=== PATIENT | male | born 1965 | race Caucasian/White ===

== ENCOUNTER → 2018-02-22 | Day surgery (SDC) | payer BC, OTHER ==
[2018-02-15 09:03] VITALS: Ht 172.7 cm; Wt 80.9 kg
[~2018-02-22] VITALS: Ht 172.7 cm; Wt 80.9 kg
[~2018-02-22] MED LIST: FENTANYL CITRATE INJ 50 MCG/1 ML 2 ML VIAL ONE; LIDOCAINE HCL 2% 2 ML VIAL (20MG/ML) ONE; PROPOFOL IV EMULSION 10 MG/ML 20 ML VIAL IV ONE; SERT-234 PO; SODIUM CHLORIDE 0.9% 500ML 500 ML IV ONE; TRAZ50TA35 PO
--- NOTE | 2018-02-22 13:59 | Endo History and Physical ---
History & Physical Date of Service: Feb 22, 2018. Chief Complaint: history of tubular adenoma Referring Physician: Dr. Santo History of Present Illness 52 yo CM who presents for Colonoscopy secondary to history of colon polyps. Past Medical History High Cholesterol, Depression Past Surgical History Hx Cardiac Surgery: No Hx Internal Defibrillator: No Hx Pacemaker: No Hx Abdominal Surgery: Yes (UMBILICAL HERNIA) Hx of Implantable Prosthesis: No Hx Post-Op Nausea and Vomiting: Yes Hx Cancer Surgery: No Hx Thoracic Surgery: No Hx Orthopedic: Yes (LEFT KNEE SURGERY, LUMBAR VERTEBRAE REPAIR, RT TIBIA FX REPAIR) Hx Urinary Tract Surgery: No Family History None Social History Smoking Status: Never Smoker Hx Substance Use: No Hx Alcohol Use: Yes (OCCASIONALLY) Allergies Coded Allergies: Dust (Verified Allergy, Unknown, SNEEZING, 02/15/18) No Known Drug Allergy (Verified Allergy, Unknown, NONE, 02/22/18) Current Medications Reported Home Medications Medications Dose Route/Sig Max Daily Dose Days Date Category Zoloft (Sertraline HCl) 100 Mg Tab 1.5 Tab PO HS 12/07/14 Reported Trazodone (Trazodone HCl) 50 Mg Tab 1 Tab PO HS PRN 04/08/10 Reported Vital Signs Weight (Kilograms): 80.91 Height (Feet): 5 Height (Inches): 8 Date Time Temp Pulse Resp B/P (MAP) Pulse Ox O2 Delivery O2 Flow Rate FiO2 02/22/18 13:39 36.7 68 18 137/93 (108) 95 Room Air Physical Exam General Appearance: WD/WN, no apparent distress Respiratory/Chest: Auscultation: breath sounds normal Cardiovascular: Heart Auscultation: RRR Abdomen: Bowel Sounds: normal Inspection & Palpation: soft, non-distended, no tenderness, guarding & rebound Assessment and Plan Assessment: 52 yo CM who presents for Colonoscopy secondary to history of colon polyps. Plan: Proceed with colonoscopy.
--- NOTE | 2018-02-22 14:30 | GI REPORT ---
Procedure Date: 02/22/2018 1:37 PM Procedure: Colonoscopy Indications: High risk colon cancer surveillance: Personal history of colonic polyps Medicines: Monitored Anesthesia Care Complications: No immediate complications. Estimated Blood Loss: Estimated blood loss: none. Procedure: Pre-Anesthesia Assessment: - Prior to the procedure, a History and Physical was performed, and patient medications and allergies were reviewed. The patient's tolerance of previous anesthesia was also reviewed. The risks and benefits of the procedure and the sedation options and risks were discussed with the patient. All questions were answered, and informed consent was obtained. Prior Anticoagulants: The patient has taken no previous anticoagulant or antiplatelet agents. ASA Grade Assessment: II - A patient with mild systemic disease. After reviewing the risks and benefits, the patient was deemed in satisfactory condition to undergo the procedure. After I obtained informed consent, the scope was passed under direct vision. Throughout the procedure, the patient's blood pressure, pulse, and oxygen saturations were monitored continuously. The scope was introduced through the anus and advanced to the terminal ileum. The colonoscopy was performed without difficulty. The patient tolerated the procedure well. The quality of the bowel preparation was good. The terminal ileum, ileocecal valve, appendiceal orifice, and rectum were photographed. Findings: The perianal and digital rectal examinations were normal. Multiple small-mouthed diverticula were found in the sigmoid colon. Non-bleeding internal hemorrhoids were found during retroflexion. The hemorrhoids were small. Impression: - Diverticulosis in the sigmoid colon. - Non-bleeding internal hemorrhoids. - No specimens collected. Recommendation: - Resume previous diet. - Continue present medications. - Repeat colonoscopy in 5 years for surveillance. - Return to primary care physician as previously scheduled. Harry Lee DO 02/22/2018 2:29:41 PM This report has been signed electronically. Note Initiated On: 02/22/2018 1:37 PM I attest to the content of the Intraoperative Record and orders documented therein, exceptions below
--- NOTE | 2018-02-22 14:36 | Discharge Instructions ---
Endoscopy Patient Instructions Date / Procedure(s) Performed Feb 22, 2018. Colonoscopy Allergy Information Coded Allergies: Dust (Verified Allergy, Unknown, SNEEZING, 02/15/18) No Known Drug Allergy (Verified Allergy, Unknown, NONE, 02/22/18) Discharge Date / Findings Feb 22, 2018. Diverticulosis Internal hemorrhoids Medication Instructions OK to resume all medications today as prescribed Reported Home Medications Medications Dose Route/Sig Max Daily Dose Days Date Category Zoloft (Sertraline HCl) 100 Mg Tab 1.5 Tab PO HS 12/07/14 Reported Trazodone (Trazodone HCl) 50 Mg Tab 1 Tab PO HS PRN 04/08/10 Reported Provider Instructions Activity Restrictions - No exercising or heavy lifting for 24 hours. - Do not drink alcohol the day of the procedure. - Do not drive a car or operate machinery until the day after the procedure. - Do not make any important decisions or sign important papers in 24 hours after the procedure. Following Day: - Return to full activity which may include returning to work/school. Diet Start your diet with liquids and light foods (jello, soup, juice, toast). Then eat your usual diet if not nauseated. Treatment For Common After Affects For mild abdominal pain, bloating, or excessive gas: - Rest - Eat lightly - Lie on right side Follow-Up Information Follow-up with Dr. Santo as scheduled Anesthesia Information What You Should Know You have had a procedure that required some medicine to reduce anxiety and discomfort. This treatment is called moderate sedation. After receiving the treatment, you may be sleepy, but you will be able to breathe on your own. The effects of the treatment may last for several hours. Follow these instructions along with Activity/Diet recommendations noted above: * Do NOT do anything where dizziness or clumsiness would be dangerous. * Rest quietly at home today, then you can be up and about tomorrow. * Have a responsible person stay with you the rest of today. * You may have had an I.V. today. If so, you may take the dressing off later today. Recommendations Call your doctor if: * Trouble breathing * Continuous vomiting for more than 24 hours * Temperature above 101 degrees * Severe abdominal pain or bloating * Pain not relieved by pain medicine ordered * There is increased drainage or redness from any incision * A large amount of rectal bleeding greater than 2-3 tablespoons. (If you had a polyp/s removed or have hemorrhoids, a small amount of blood - from the rectum is to be expected.) * You have any unanswered questions or concerns. IN THE EVENT OF A SERIOUS EMERGENCY, GO TO THE NEAREST EMERGENCY ROOM Your discharge instructions were prepared by provider Harry Lee. Patient Instructions Signature Page Kyle Gross Patient (or Guardian) Signature/Date: I have read and understand the instructions given to me by my caregivers. Caregiver/RN/Doctor Signature/Date: The above-named patient and/or guardian has received patient instructions on this date. + Original Patient Signature Page (only) stays with chart. Please make copy for patient.
[2018-02-22 14:58] VITALS: BP 119/86; PULSE 64; O2SAT 95
--- NOTE | 2018-02-22 15:16 | Anesthesiology Progress Note ---
Anesthesia Post Op Note Date & Time Feb 22, 2018 at 15:16 Vital Signs Pain Intensity: 0 Vital Signs Past 12 Hours Date Time Temp Pulse Resp B/P (MAP) Pulse Ox O2 Delivery O2 Flow Rate FiO2 02/22/18 14:58 64 20 119/86 (97) 95 Room Air 02/22/18 14:43 65 20 123/77 (92) 95 Room Air 02/22/18 14:27 70 18 97/64 (75) 97 Room Air 02/22/18 13:39 36.7 68 18 137/93 (108) 95 Room Air Notes Mental Status: alert / awake / arousable, participated in evaluation Pt Amnestic to Procedure: Yes Nausea / Vomiting: adequately controlled Pain: adequately controlled Airway Patency, RR, SpO2: stable & adequate BP & HR: stable & adequate Hydration State: stable & adequate Anesthetic Complications: no major complications apparent
== END | disposition home or self-care (01) ==
LOC: C.GI 13:23
PROVIDERS: ATTEND Internal Medicine
DX: Z12.11 Encounter for screening for malignant neoplasm of colon (principal); E03.9 Hypothyroidism, unspecified; Z86.010 Personal history of colon polyps; K57.30 Diverticulosis of large intestine without perforation or abscess without bleeding; K64.8 Other hemorrhoids